=== PATIENT | male | born 1990 | race Caucasian/White ===

== ENCOUNTER 2018-11-10 01:18 | Emergency (ER) | payer SELFPAY ==
[~2018-11-10] VITALS: Ht 167.6 cm; Wt 81.8 kg
[2018-11-10 01:20] VITALS: Ht 167.6 cm; Wt 81.8 kg
[2018-11-10] MEDS ORDERED: TYLENOL W/CODEI1 TAB PO (01:49)
[2018-11-10 02:00] VITALS: BP 139/80
== END 2018-11-10 02:00 | disposition home or self-care (01) ==
LOC: D.ER 01:18
DX: S01.01XA Laceration without foreign body of scalp, initial encounter (principal); W22.8XXA Striking against or struck by other objects, initial encounter; Y93.89 Activity, other specified; Y92.89 Other specified places as the place of occurrence of the external cause